=== PATIENT | male | born 1975 | race Caucasian/White ===

== ENCOUNTER 2019-09-06 23:25 | Emergency (ER) | payer BC ==
[~2019-09-06] VITALS: Ht 165.1 cm; Wt 70.0 kg
[2019-09-07] MEDS ORDERED: ORPHENADRINE C100 MG PO (01:19)
[2019-09-07] MEDS ORDERED: IBUPROFEN600 MG PO (01:19)
[2019-09-07 01:25] VITALS: BP 130/69
[2019-09-08] MEDS ORDERED: LORTAB 1010 MG PO (09:23)
[2019-09-08] MEDS ORDERED: FLEXERIL PO (09:23)
== END 2019-09-07 01:26 | disposition home or self-care (01) | DRG 556 ==
LOC: ED 23:25
DX: M25.512 Pain in left shoulder (principal); M54.2 Cervicalgia; F17.210 Nicotine dependence, cigarettes, uncomplicated

== ENCOUNTER 2019-09-08 08:53 | Emergency (ER) | payer BC ==
[~2019-09-08] VITALS: Ht 165.1 cm; Wt 70.0 kg
[~2019-09-08 08:53] MED LIST: IBUPROFEN600 MG PO; ORPHENADRINE C100 MG PO
[2019-09-08] MEDS ORDERED: LORTAB 1010 MG PO (09:23)
[2019-09-08] MEDS ORDERED: FLEXERIL PO (09:23)
[2019-09-08 09:44] VITALS: BP 103/78
== END 2019-09-08 09:56 | disposition home or self-care (01) | DRG 563 ==
LOC: ED 08:53
DX: S43.402A Unspecified sprain of left shoulder joint, initial encounter (principal); F17.210 Nicotine dependence, cigarettes, uncomplicated; X58.XXXA Exposure to other specified factors, initial encounter

== ENCOUNTER 2019-09-10 | Emergency (ER) | payer BC ==
[~2019-09-10] MED LIST changes: +FLEXERIL PO; +LORTAB 1010 MG PO
== END 2019-09-10 07:05 | disposition home or self-care (01) | DRG 556 ==
DX: M25.512 Pain in left shoulder (principal)

== ENCOUNTER 2021-01-18 00:45 | Emergency (ER) | payer MEDICAID ==
[~2021-01-18] VITALS: Ht 165.1 cm; Wt 65.9 kg
[2021-01-18 01:50] VITALS: BP 110/60
== END 2021-01-18 01:59 | disposition home or self-care (01) ==
LOC: ED 00:45
DX: S00.03XA Contusion of scalp, initial encounter (principal); S00.83XA Contusion of other part of head, initial encounter; S10.93XA Contusion of unspecified part of neck, initial encounter; F17.200 Nicotine dependence, unspecified, uncomplicated; Y04.2XXA Assault by strike against or bumped into by another person, initial encounter; Y92.410 Unspecified street and highway as the place of occurrence of the external cause